=== PATIENT | female | born 1985 | race Caucasian/White ===

== ENCOUNTER 2023-01-02 20:24 | Emergency (ER) | payer OTHER ==
[2023-01-02 20:31] VITALS: BMI 34.4
[2023-01-02 22:15] LABS: THROAT:GRP A STREP NOT DETECTED (NOTDETECTED)
[2023-01-03 01:44] VITALS: BP 120/75; PULSE 109; RESP 20; TEMP 97.8
== END 2023-01-03 01:25 | disposition home or self-care (01) ==
LOC: JER 20:24 → JERFT 20:24 → JER 01-03 01:25
DX: O98.512 Other viral diseases complicating pregnancy, second trimester (principal); J06.9 Acute upper respiratory infection, unspecified; Z3A.20 20 weeks gestation of pregnancy
CPT/HCPCS: 0241U-QW; 76810-TC; 87651; 99284-25

== ENCOUNTER 2023-04-10 14:45 | Inpatient (IN) | payer OTHER ==
[2023-04-10 17:02] LABS: HEMATOCRIT 33.9 % (32.4-45.2); HEMOGLOBIN 11.5 GM/dL (10.7-15.3); MCH 28.7 pg (25.7-33.7); MCHC 34.1 g/dl (32.0-36.0); MEAN CELL VOLUME 84.3 fl (80-96); MEAN PLT VOLUME 11.1 fl (7.5-11.1); PLATELET COUNT 115 10^3/uL (134-434); RBC 4.02 M/mm3 (3.60-5.2); RDW 16.1 % (11.6-15.6); WHITE BLOOD COUNT 5.2 K/mm3 (4.0-10.0)
[2023-04-10 17:24] LABS: POTASSIUM 4.1 mmol/L (3.5-5.1)
[2023-04-10 17:27] LABS: CALCIUM 8.5 mg/dL (8.5-10.1)
[2023-04-10 17:28] LABS: BLOOD UREA NITROGEN 11.1 mg/dL (7-18)
[2023-04-10 17:31] LABS: CREATININE 0.5 mg/dL (0.55-1.3); URIC ACID 4.8 mg/dL (2.6-7.2)
[2023-04-10 17:33] LABS: BILIRUBIN,TOTAL 0.3 mg/dL (0.2-1); TOT PROT 5.5 g/dl (6.4-8.2)
[2023-04-10 17:34] LABS: SGOT/AST 20 U/L (15-37)
[2023-04-10 17:35] LABS: SGPT/ALT 15 U/L (13-61)
[2023-04-10 17:43] LABS: URINE APPEARANCE CLEAR; URINE BILIRUBIN NEGATIVE (NEGATIVE); URINE COLOR YELLOW; URINE GLUCOSE (UA) NEGATIVE (NEGATIVE); URINE KETONE NEGATIVE (NEGATIVE)
[2023-04-10 17:44] LABS: PH,URINE 6.5 (5.0-8.0); URINE LEUK ESTERASE 1+ (NEGATIVE); URINE NITRITE NEGATIVE (NEGATIVE); URINE PROTEIN 300 (NEGATIVE)
[2023-04-10 17:48] LABS: GAMMA GLUTAMYL TRANSPEPTIDASE 6 U/L (5-85)
[2023-04-10 18:51] VITALS: BMI 38.0
[2023-04-10] MEDS ORDERED: BETAMET ACET/BETAMET NA PH 30 MG/5 ML VIAL IM ONE (20:29)
[2023-04-10] MEDS ORDERED: BETAMET ACET/BETAMET NA PH 30 MG/5 ML VIAL ONE (20:32)
[2023-04-10] MEDS ORDERED: ACETAMINOPHEN 325 MG TABLET (FP) PO PRN (20:36)
[2023-04-10] MEDS: ELECTROLYTE-148 SOLN 1,000 ML IV SCH (21:00)
[2023-04-10 21:28] LABS: INR 1.01 (0.83-1.09); PROTHROMBIN TIME (PATIENT) 11.7 SEC (9.7-13.0)
[2023-04-10 21:31] LABS: ACTIVATED PTT 30.4 SECONDS (25.2-36.5)
[2023-04-11 08:56] LABS: BASO % 0.2 % (0-2.0); EOS % 0.1 % (0-4.5); HEMATOCRIT 37.1 % (32.4-45.2); HEMOGLOBIN 12.7 GM/dL (10.7-15.3); LYMPH % 19.7 % (8-40); MCH 28.8 pg (25.7-33.7); MCHC 34.1 g/dl (32.0-36.0); MEAN CELL VOLUME 84.4 fl (80-96); MEAN PLT VOLUME 12.1 fl (7.5-11.1); MONO % 2.6 % (3.8-10.2); NEUT % 77.4 % (42.8-82.8); PLATELET COUNT 140 10^3/uL (134-434); RBC 4.39 M/mm3 (3.60-5.2)
[2023-04-11 09:09] LABS: POTASSIUM 5.1 mmol/L (3.5-5.1)
[2023-04-11 09:11] LABS: CALCIUM 8.7 mg/dL (8.5-10.1)
[2023-04-11 09:12] LABS: ALBUMIN 2.2 g/dl (3.4-5.0)
[2023-04-11 09:15] LABS: CREATININE 0.6 mg/dL (0.55-1.3)
[2023-04-11 09:16] LABS: BILIRUBIN,TOTAL 0.4 mg/dL (0.2-1)
[2023-04-11] MEDS ORDERED: BETAMET ACET/BETAMET NA PH 30 MG/5 ML VIAL IM STA (11:48)
[2023-04-11] MEDS ORDERED: FENTANYL CITRATE/PF 50 MCG/ML VIAL ONE (16:38)
[2023-04-11] MEDS ORDERED: ePHEDrine SULFATE 50 MG/1 ML AMPULE ONE ×2 (16:39→17:42)
[2023-04-11] MEDS ORDERED: ACETAMINOPHEN 325 MG TABLET (FP) PO PRN (17:43)
[2023-04-11] MEDS ORDERED: IBUPROFEN 800 MG/8 ML IJ IVPB PRN (17:43)
[2023-04-11 17:50] LABS: CORD HCO3 23.7 mmHg (20-29); CORD HCO3 25.1 mmHg (20-29); CORD PCO2 59.7 mmHg (30-78); CORD pH 7.242 (7.14-7.44); CORD pH 7.294 (7.14-7.44)
[2023-04-11 17:53] LABS: CORD HCO3 22.5 mmHg (20-29); CORD PCO2 50.3 mmHg (30-78); CORD pH 7.269 (7.14-7.44)
[2023-04-11 17:56] LABS: CORD HCO3 23.5 mmHg (20-29); CORD PCO2 60.3 mmHg (30-78); CORD pH 7.209 (7.14-7.44)
[2023-04-11] MEDS ORDERED: OXYTOCIN 20 UNITS in 0.9% NS 20 UNIT/1,000 ML INFUS.BAG IV ONE (18:23)
[2023-04-11] MEDS: OXYTOCIN 20 UNITS in 0.9% NS 20 UNIT/1,000 ML INFUS.BAG IV SCH (18:25)
[2023-04-11] MEDS: ELECTROLYTE-148 SOLN 1,000 ML IV SCH (20:29)
[2023-04-11] MEDS ORDERED: ONDANSETRON 4 MG/2 ML VIAL IVPUSH PRN (22:04)
[2023-04-11] MEDS ORDERED: ceFAZolin 2 GRAM PREMIX BAG IVPB ONE (23:55)
[2023-04-11] MEDS ORDERED: CEFAZOLIN SODIUM 2 GM in DEXTROSE 5%-WATER 100 ML IVPB ONE (23:55)
[2023-04-12] MEDS ORDERED: CEFAZOLIN SODIUM 2 GM in DEXTROSE 5%-WATER 100 ML IVPB ONE (01:00)
[2023-04-12] MEDS: OXYTOCIN 20 UNITS in 0.9% NS 20 UNIT/1,000 ML INFUS.BAG IV SCH (03:02)
[2023-04-12] MEDS ORDERED: oxyCODONE HCL 5 MG TABLET PO PRN (05:44)
[2023-04-12 07:40] LABS: BASO % 0.1 % (0-2.0); HEMOGLOBIN 11.5 GM/dL (10.7-15.3); LYMPH % 9.8 % (8-40); MCH 28.8 pg (25.7-33.7); MCHC 33.8 g/dl (32.0-36.0); MEAN CELL VOLUME 85.2 fl (80-96); MONO % 5.7 % (3.8-10.2); NEUT % 84.4 % (42.8-82.8); PLATELET COUNT 164 10^3/uL (134-434); RBC 3.99 M/mm3 (3.60-5.2); RDW 16.2 % (11.6-15.6); WHITE BLOOD COUNT 15.2 K/mm3 (4.0-10.0)
[2023-04-12] MEDS ORDERED: BISACODYL 10 MG SUPP.RECT RC PRN (17:44)
[2023-04-12] MEDS: IBUPROFEN 600 MG TABLET (FP) PO PRN (18:48)
[2023-04-13] MEDS: SIMETHICONE 80 MG TAB.CHEW (FP) PO PRN ×2 (04:34→20:49)
[2023-04-13] MEDS: IBUPROFEN 600 MG TABLET (FP) PO PRN ×2 (04:35→20:48)
[2023-04-14 08:37] LABS: BASO % 0.4 % (0-2.0); EOS % 0.6 % (0-4.5); LYMPH % 27.8 % (8-40); MCH 29.3 pg (25.7-33.7); MCHC 34.5 g/dl (32.0-36.0); MEAN CELL VOLUME 84.9 fl (80-96); MEAN PLT VOLUME 10.3 fl (7.5-11.1); MONO % 9.5 % (3.8-10.2); NEUT % 61.7 % (42.8-82.8); PLATELET COUNT 154 10^3/uL (134-434); RBC 3.77 M/mm3 (3.60-5.2); WHITE BLOOD COUNT 9.5 K/mm3 (4.0-10.0)
[2023-04-14] MEDS: IBUPROFEN 600 MG TABLET (FP) PO PRN (09:30)
[2023-04-14] MEDS: SIMETHICONE 80 MG TAB.CHEW (FP) PO PRN (09:30)
[2023-04-15 11:27] VITALS: BP 91/57; PULSE 85; RESP 17; TEMP 98
== END 2023-04-15 13:00 | disposition home or self-care (01) | DRG 788 ==
LOC: JDEL 14:45 → JLDR 18:22 → J3W 04-11 20:01
PROVIDERS: ADMIT Obstetrics & Gynecology; ATTEND Obstetrics & Gynecology
PROC: 10D00Z1 Extraction of Products of Conception, Low, Open Approach (ICD-10-PCS; principal; 2023-04-11)
DX: O14.94 Unspecified pre-eclampsia, complicating childbirth (principal); O36.5932 Maternal care for other known or suspected poor fetal growth, third trimester, fetus 2; O32.1XX0 Maternal care for breech presentation, not applicable or unspecified; O30.043 Twin pregnancy, dichorionic/diamniotic, third trimester; Z3A.35 35 weeks gestation of pregnancy; Z37.2 Twins, both liveborn
CPT/HCPCS: 36415; 36600; 59025; 80053; 81003; 82570; 82803; 82977; 83010; 84156; 84450; 84460; 84550; 85025; 85027; 85045; 85610; 85730; 86780; 86850; 86900; 86901; 88307-TC; 96372; C9803-CS; U0003; U0005